=== PATIENT | male | born 1975 | race Caucasian/White ===

== ENCOUNTER 2018-08-09 13:08 | Emergency (ER) | payer MEDICAID, OTHER ==
[~2018-08-09] VITALS: Ht 177.8 cm; Wt 70.5 kg
[2018-08-09] MEDS ORDERED: SULF1TAB49 PO (14:33)
[2018-08-09] MEDS ORDERED: ACET-3067 PO (14:33)
[2018-08-09] MEDS ORDERED: CEPH500C5 PO (14:33)
[2018-08-09] MEDS ORDERED: HYDROcodone/acetaminophen 5mg/325mg tablet PO ONE (14:35)
[2018-08-09 14:41] VITALS: BP 142/84
== END 2018-08-09 14:43 | disposition home or self-care (01) ==
LOC: ER 13:09
DX: L02.415 Cutaneous abscess of right lower limb (principal); F12.90 Cannabis use, unspecified, uncomplicated
CPT/HCPCS: 10060; 99283

== ENCOUNTER 2021-06-20 16:12 | Emergency (ER) | payer MEDICAID, OTHER ==
[~2021-06-20] VITALS: Ht 177.8 cm; Wt 72.0 kg
[2021-06-20 16:19] VITALS: BP 117/83
[2021-06-20] MEDS ORDERED: GUAI-422 PO (16:47)
[2021-06-20] MEDS ORDERED: SODI30SP3 BOTHNARES (16:47)
[2021-06-20] MEDS ORDERED: IBUP-1986 PO (16:47)
== END 2021-06-20 17:15 | disposition home or self-care (01) ==
LOC: ER 16:13
DX: J32.9 Chronic sinusitis, unspecified (principal); B34.9 Viral infection, unspecified; F12.90 Cannabis use, unspecified, uncomplicated; R09.81 Nasal congestion; R51.9 Headache, unspecified; Z79.899 Other long term (current) drug therapy
CPT/HCPCS: 99282